=== PATIENT | female | born 1985 | race Caucasian/White ===

== ENCOUNTER 2016-08-11 17:49 | Emergency (ER) | payer MEDICAID ==
[~2016-08-11] VITALS: Wt 71.0 kg
[2016-08-11] MEDS ORDERED: KETO5DRO58 OP (18:21)
--- NOTE | 2016-08-11 18:37 | ERD ---
ER Documentation Chief Complaint Date/Time DATE: 08/11/16 TIME: 18:33 Chief Complaint BILATERAL EYE REDNESS X 1 MONTH HPI 30-year-old female complaining of bilateral eye irritation 1 month. Patient stated that she feels itching and burning in bilateral eyes. Sometimes, she has white discharge. She takes Benadryl for allergies, but did not help. She does not wear contact lenses. Denies fever or chills. Denies blurry vision. Denies eye pain. ROS All systems reviewed and are negative except as per history of present illness. Medications Home Meds Active Scripts Ketotifen Fumarate (ZADITOR) 5 Ml Drops, 1 DROP OP Q12, #1 BOTTLE Prov:VALENTIN TYLER. DOMAIN ARCHITECT 08/11/16 PMhx/Soc Medical and Surgical Hx: pt denies Medical Hx, pt denies Surgical Hx Hx Alcohol Use: No Hx Substance Use: No Hx Tobacco Use: No Smoking Status: Never smoker Physical Exam Vitals Vital Signs Date Time Temp Pulse Resp B/P Pulse Ox O2 Delivery O2 Flow Rate FiO2 08/11/16 17:58 98.0 61 18 132/65 99 Physical Exam General impression: Well-developed, well-nourished. Alert, oriented, in no acute distress Head: Normocephalic, atraumatic. Eyes: PERRL, EOM normal. Sclerae are normal. Conjunctiva not injected. No exudates. ENT: External canals patent. TM'sclear. Nasal mucosa, oral mucosa and oropharynx are normal. Neck: Supple, nontender. No lymphadenopathy. No nuchal rigidity. Respiration: Normal respiratory effort. Lungs clear to auscultate bilaterally. No wheezes, rales or rhonchi. Cardiovascular: Regular rate and rhythm. No murmurs or extra heart sounds. Neuro: Mental status normal, speech normal. PLATE INSPECTOR grossly intact. Skin: Normal turgor. No rash or lesions. Psych: Normal mood and affect. Procedures/MDM Well-appearing 30-year-old female presented to ED with bilateral eye irritation 1 month. Patient has history is consistent with allergic conjunctivitis. Her exam findings are benign. I doubt bacterial conjunctivitis, corneal abrasion, corneal ulcer, or acute angle-closure glaucoma. Patient appears well, stable for discharge and outpatient management. Medical decision making shared with patient and family. Education provided to patient and family. Patient and family expressed understanding of the plan. Medications on discharge: Zaditor ophthalmic. Follow-up: Primary care provider in 2-3 days or return to ED if worse. Departure Diagnosis: Primary Impression: Allergic conjunctivitis Laterality: bilateral Qualified Code: H10.13 - Allergic conjunctivitis, bilateral Condition: Good Patient Instructions: Conjunctivitis, Allergic Referrals: [facility] YOU HAVE RECEIVED A MEDICAL SCREENING EXAM AND THE RESULTS INDICATE THAT YOU DO NOT HAVE A CONDITION THAT REQUIRES URGENT TREATMENT IN THE EMERGENCY DEPARTMENT. FURTHER EVALUATION AND TREATMENT OF YOUR CONDITION CAN WAIT UNTIL YOU ARE SEEN IN YOUR DOCTORS OFFICE WITHIN THE NEXT 1-2 DAYS. IT IS YOUR RESPONSIBILITY TO MAKE AN APPOINTMENT FOR FOLOW-UP CARE. IF YOU HAVE A PRIMARY DOCTOR --you should call your primary doctor and schedule an appointment IF YOU DO NOT HAVE A PRIMARY DOCTOR YOU CAN CALL OUR PHYSICIAN REFERRAL HOTLINE AT IF YOU CAN NOT AFFORD TO SEE A PHYSICIAN YOU CAN CHOSE FROM THE FOLLOWING [facility] [address] [facility]. [facility] [address] [facility] [facility] [address] [facility] [facility] [facility] [address] [facility] [address]. [facility]. [address] Additional Instructions: Call your primary care doctor TOMORROW for an appointment during the next 2-3 days.See the doctor sooner or return here if your condition worsens before your appointment time. VALENTIN TYLER NP Aug 11, 2016 18:37
== END 2016-08-11 18:42 | disposition home or self-care (01) ==
LOC: FTE 17:49
DX: H10.13 Acute atopic conjunctivitis, bilateral (principal)
CPT/HCPCS: 99283